=== PATIENT | male | born 1990 ===

== ENCOUNTER 2018-01-09 20:04 | Emergency (ER) | payer SELFPAY ==
[2018-01-09 20:23] VITALS: BP 123/63; PULSE 63; RESP 18; TEMP 98; O2SAT 100
--- NOTE | 2018-01-09 21:34 | ED PDOC ---
Lower Extremity Pain/Injury Time Seen by Provider: 01/09/18 21:00 Chief Complaint (Nursing): Lower Extremity Problem/Injury Chief Complaint (Provider): Lower Extremity Problem/Injury History Per: Patient, [employer] (#[id number]) History/Exam Limitations: no limitations Onset/Duration Of Symptoms: Hrs Current Symptoms Are (Timing): Still Present Additional Complaint(s): Wili Montilla is a 27 year old male with no past medical history who is presenting to the ED for evaluation of knee pain onset earlier today. Patient states that he was playing soccer and came to a full stop while running and heard his knee crack three times. He denies any numbness tingling or any other injuries. PMD: none provided Past Medical History Reviewed: Historical Data, Nursing Documentation, Vital Signs Vital Signs: Last Vital Signs Temp 98.0 F 01/09/18 20:21 Pulse 63 01/09/18 20:21 Resp 18 01/09/18 20:21 BP 123/63 01/09/18 20:21 Pulse Ox 100 01/09/18 20:21 - Medical History PMH: No Chronic Diseases - Surgical History Surgical History: No Surg Hx - Family History Family History: States: Unknown Family Hx - Social History Current smoker - smoking cessation education provided: No Alcohol: None Drugs: Denies - Home Medications Home Medications: Ambulatory Orders Medication Instructions Recorded Ibuprofen [Motrin Tab] 800 mg PO Q8 PRN #12 tab 01/09/18 - Allergies Allergies/Adverse Reactions: Allergies Allergy/AdvReac Type Severity Reaction Status Date / Time No Known Allergies Allergy Verified 01/09/18 20:21 Review of Systems ROS Statement: Except As Marked, All Systems Reviewed And Found Negative Musculoskeletal: Positive for: Leg Pain (knee pain) Neurological: Negative for: Numbness, Other (tingling) Physical Exam - Reviewed Nursing Documentation Reviewed: Yes Vital Signs Reviewed: Yes - Physical Exam Appears: Positive for: Non-toxic, No Acute Distress Head Exam: Positive for: ATRAUMATIC, NORMAL INSPECTION, NORMOCEPHALIC Skin: Positive for: Normal Color, Warm Neck: Positive for: Normal, Painless ROM Back: Positive for: Normal Inspection Extremity: Positive for: Other (left knee: mild anterior knee tenderness, moderate swelling, no break in skin integrity). Negative for: Calf Tenderness, Deformity Neurologic/Psych: Positive for: Alert, Oriented. Negative for: Motor/Sensory Deficits - ECG O2 Sat by Pulse Oximetry: 100 (RA) Pulse Ox Interpretation: Normal - Radiology X-Ray: Read By Radiologist (L knee x-ray ([place] rad report)) X-Ray Interpretation: No Acute Disease - Progress ED Course And Treament: Knee immobilized in immobilizer applied by RN. Crutches and crutch walking instr uctions provided by RN. Advised to f/u with Dr. Chapman, orthopedist, for further evaluation. Medical Decision Making Medical Decision Making: Time: 12:31 Plan: --X-ray knee --Toradol 30 mg IM Scribe Attestation: Documented by Marry Marshall, acting as a scribe for Alli Reynolds PA-C. Provider Scribe Attestation: All medical record entries made by the Scribe were at my direction and personally dictated by me. I have reviewed the chart and agree that the record accurately reflects my personal performance of the history, physical exam, medical decision making, and the department course for this patient. I have also personally directed, reviewed, and agree with the discharge instructions and disposition. Disposition - Clinical Impression Clinical Impression: Knee sprain - Patient ED Disposition Is Patient to be Admitted: No - Disposition Referrals: Jarocho Chapman MD [Medical Doctor] - [facility] [Outside] [facility] [Outside] Disposition: Routine/Home Disposition Time: 23:16 Condition: STABLE Additional Instructions: FOLLOW UP WITH ORTHOPEDIST FOR FURTHER EVALUATION WILI MONTILLA, thank you for letting us take care of you today. Your provider was Dale Sanchez MD and you were treated for LT KNEE PAIN. The emergency medical care you received today was directed at your acute symptoms. If you were prescribed any medication, please fill it and take as directed. It may take several days for your symptoms to resolve. Return to the Emergency Department if your symptoms worsen, do not improve, or if you have any other problems. Please contact your doctor or call one of the physicians/clinics you have been referred to that are listed on the Patient Visit Information form that is included in your discharge packet. Bring any paperwork you were given at [facility] with you along with any medications you are taking to your follow up visit. Our treatment cannot replace ongoing medical care by a primary care provider outside of the emergency department. Thank you for allowing the [facility] team to be part of your care today. If you had an X-Ray or CT scan: A Radiologist will review the ED reading if any change in treatment is needed we will contact you. If you had a blood, urine, or wound culture: It will take several days for the results, if any change in treatment is needed we will contact you. If you had an STI test: It will take 48 hours for the results. Please call after 1 week if you have not heard back. Prescriptions: Ibuprofen [Motrin Tab] 800 mg PO Q8 PRN #12 tab PRN Reason: pain Instructions: Knee Sprain (DC), How to Use Crutches Forms: [employer] (Romansh) Print Language: CROATIAN
--- NOTE | 2018-01-10 09:29 | RAD ---
Date of service: 01/09/2018 PROCEDURE: Left Knee Radiographs. HISTORY: Pain. COMPARISON: None. FINDINGS: BONES: No acute fracture. Calcific density superior to the tibial tubercle. JOINTS: Unremarkable. JOINT EFFUSION: Small to moderate joint effusion. OTHER FINDINGS: None. IMPRESSION: No demonstrated acute fracture. Ossific density just superior to the tibial tubercle likely a sequela of prior trauma.
== END 2018-01-09 23:50 | disposition home or self-care (01) ==
LOC: H.ER 20:04
DX: S83.92XA Sprain of unspecified site of left knee, initial encounter (principal); X50.9XXA Other and unspecified overexertion or strenuous movements or postures, initial encounter; Y92.322 Soccer field as the place of occurrence of the external cause
CPT/HCPCS: 29530; 73562; 96372; 99282; J1885